=== PATIENT | male | born 1945 | race Caucasian/White ===

== ENCOUNTER 2016-05-01 12:20 | Emergency (ER) | payer OTHER ==
[~2016-05-01] VITALS: Ht 160 cm; Wt 80.0 kg
[~2016-05-01 12:20] MED LIST: ALLO100 PO; ASPI325T PO; CORE25TA PO; COUM2.5T PO; COUM5TAB PO; LISI-363 PO; PRAV20 PO; REME15TA PO; SERT-132 PO; TRAM50TA PO; [UNRECOGNIZED DRUG - OTHER] PO
[2016-05-01 12:21] VITALS: BP 137/86; PULSE 105; RESP 16; TEMP 98.1; O2SAT 98
[2016-05-01] MEDS ORDERED: FOLI5CAP PO (13:26)
[2016-05-01] MEDS ORDERED: REME15TA PO (13:26)
[2016-05-01] MEDS ORDERED: ATOR1TAB18 PO (13:26)
[2016-05-01] MEDS ORDERED: ZOLO50TA PO (13:26)
[2016-05-01] MEDS ORDERED: TRAM50TA PO (13:26)
[2016-05-01] MEDS ORDERED: WARF-23 PO (13:26)
[2016-05-01] MEDS ORDERED: CARV25TA PO (13:26)
[2016-05-01] MEDS ORDERED: ALLO300T2 PO (13:26)
[2016-05-01] MEDS ORDERED: AUGM875T PO (13:42)
--- NOTE | 2016-05-01 13:43 | PD ---
HPI Chief Complaint: Bite or Sting Time Seen by Provider: 13:35 Travel History International Travel<30 days: No Contact w/Intl Traveler<30days: No Traveled to known affect area: No History of Present Illness HPI 70-year-old male with history of previous cardiac issues, [facility], patient had tried to stop another dog from attacking his dog, and was bitten by the other dog in the hand and leg areas. He had [facility] today and they told him to come in. He denies any other issues, fevers, or other symptoms. He states that the pit bull involved is owned by somebody from his complex. Modifying Factors: None Associated Signs & Symptoms: Dog bites Risk Factors: None PFSH Past Medical History Hx Anticoagulant Therapy: Yes (COUMADIN) Arthritis: Yes Atrial Fibrillation: Yes Heart Rhythm Problems: Yes (A FLUTTER ) Cardiovascular Problems: Yes High Cholesterol: Yes Diminished Hearing: No Hypertension: Yes Tetanus Vaccination: < 5 Years Influenza Vaccination: No Past Surgical History Coronary Artery Bypass Graft: Yes (BYPASS 2003 ) Social History Alcohol Use: Yes (ocassionally) Tobacco Use: No Substance Use: No Allergies-Medications (Allergen,Severity, Reaction): Coded Allergies: No Known Allergies (Unverified , 05/01/16) Reported Meds & Prescriptions Reported Meds & Active Scripts Active Reported Atorvastatin (Atorvastatin Calcium) 80 Mg Tab 80 Mg PO HS Warfarin 5 Mg Tab 5 Mg PO DAILY Folic Acid 5 Mg Cap 1 Mg PO DAILY Tramadol (Tramadol HCl) 50 Mg Tab 50 Mg PO BID PRN Remeron (Mirtazapine) 15 Mg Tab 15 Mg PO HS Zoloft (Sertraline HCl) 50 Mg Tab 50 Mg PO DAILY Allopurinol 300 Mg Tab 300 Mg PO DAILY Carvedilol 25 Mg Tab 25 Mg PO BID Review of Systems Except as stated in HPI: all other systems reviewed are Neg Physical Exam Narrative GENERAL: Well-nourished, well-developed pleasant elderly white male patient in no acute distress. SKIN: Warm and dry. Notable for abrasions on the left leg, small puncture wounds on the right hand, with mild surrounding erythema but not significantly tender or fluctuant. HEAD: Normocephalic. EYES: No scleral icterus. No injection or drainage. NECK: Supple, trachea midline. CARDIOVASCULAR: Regular rate and rhythm without murmurs, gallops, or rubs. RESPIRATORY: Breath sounds equal bilaterally. No accessory muscle use. GASTROINTESTINAL: Abdomen soft, non-tender, nondistended. MUSCULOSKELETAL: No cyanosis, or edema. BACK: Nontender without obvious deformity. No CVA tenderness. Data Data Last Documented VS Vital Signs Date Time Temp Pulse Resp B/P Pulse Ox O2 Delivery O2 Flow Rate FiO2 05/01/16 13:20 16 05/01/16 12:21 98.1 105 137/86 98 MDM Medical Decision Making Medical Screen Exam Complete: Yes Emergency Medical Condition: Yes Medical Record Reviewed: Yes Differential Diagnosis Dog bites/mild cellulitis Narrative Course At this point, I have talked to the patient regarding his risk of rabies exposure. We have talked regarding the possible exposure to rabies and patient states that this dog belongs to somebody from his complex and he thinks he should be able to find the dog and the network architect manager in his complex. I have talked to the patient regarding the fact that his doctor cannot be found to be observed for that the dog does not have rabies vaccination, he may have been exposed to rabies and that rabies is a deadly disease. And if he is worried about those risks, he should get vaccinated. Patient states understanding but declines vaccination at this time stating that he thinks he should be able to find the dog and the network architect manager. He has had a recent tetanus shot 2 months ago. At this point, patient will need to find the dog involved and my plan would be to release him with antibiotics prophylactically for to dog bite. He still is at risk for rabies should he has not able to find the dog, he should return as soon as possible. Patient states understanding. Diagnosis Primary Impression: BITTEN BY DOG, INITIAL ENCOUNTER Med/Other Pt SpecificInfo: Prescription(s) given Scripts Amoxicillin-Clavulanate (Augmentin)875-125 mg [id number] Mg PO BID #14 TAB Ref 0 not for use in CrCl <30 ml/min. Prov:Coni Graham MD 05/01/16 Disposition: 01 DISCHARGE HOME Condition: Stable Coni Graham MD May 01, 2016 13:42
[2016-05-01 13:50] VITALS: BP 130/81; TEMP 97.8
== END 2016-05-01 13:50 | disposition home or self-care (01) ==
LOC: NEPC 12:20
DX: S61.451A Open bite of right hand, initial encounter (principal); S80.872A Other superficial bite, left lower leg, initial encounter; I10 Essential (primary) hypertension; I48.91 Unspecified atrial fibrillation; E78.00 Pure hypercholesterolemia, unspecified; Z79.01 Long term (current) use of anticoagulants; Z95.1 Presence of aortocoronary bypass graft; Z86.79 Personal history of other diseases of the circulatory system; Z87.39 Personal history of other diseases of the musculoskeletal system and connective tissue; W54.0XXA Bitten by dog, initial encounter
CPT/HCPCS: 99283